=== PATIENT | female | born 1960 | race Caucasian/White ===

== ENCOUNTER 2019-01-13 06:59 | Day surgery (SDC) | payer OTHER ==
[2019-01-13] MEDS ORDERED: PROPOFOL 40 ML (10:21)
== END 2019-01-13 11:52 | disposition home or self-care (01) ==
LOC: GIL 06:59
DX: K44.9 Diaphragmatic hernia without obstruction or gangrene (principal); K22.70 Barrett's esophagus without dysplasia; K31.9 Disease of stomach and duodenum, unspecified; I10 Essential (primary) hypertension; E11.9 Type 2 diabetes mellitus without complications; Z79.84 Long term (current) use of oral hypoglycemic drugs
CPT/HCPCS: 43239; 82962; 88305; 88312; 88313